=== PATIENT | male | born 1945 | race Caucasian/White ===

== ENCOUNTER 2019-02-09 08:23 | Day surgery (SDC) | payer MEDICARE, BC ==
[~2019-02-09 08:23] MED LIST: Midazolam 1 MG/ML 2 ML SDV ONE; Propofol 200 MG/20 ML SDV ONE; Sodium Chloride 0.9% 10 ML Syringe FLUSH PRN
[2019-02-09] MEDS: Lactated Ringers 1,000 ML IV SCH (09:11)
[2019-02-09] MEDS ORDERED: Midazolam 1 MG/ML 2 ML SDV ONE (09:45)
[2019-02-09] MEDS ORDERED: Propofol 200 MG/20 ML SDV ONE ×2 (09:45→10:24)
--- NOTE | 2019-02-09 10:16 | PCM.HPR ---
H & P Addendum review - H & P Addendum Review Date of Original H & P: 01/11/19 Date Reviewed: 02/09/19 Time Reviewed: 09:35 Patient was Examined: No Changes
--- NOTE | 2019-02-09 10:16 | PCM.OPNOTE ---
- General Post-Op/Procedure Note Date of Surgery/Procedure: 02/09/19 Operative Procedure(s): Colonoscopy with polypectomy Findings: desc colon polyp at 75 cm Pre Op Diagnosis: Screening Post-Op Diagnosis: Same Anesthesia Technique: MAC Primary Surgeon: Selwyn Duque Anesthesia Provider: Shirlene Ochoa EBSerena in mLs: 0 Complications: None Condition: Good
--- NOTE | 2019-02-10 08:38 | OR ---
Date of Procedure: 02/09/2019 PREOPERATIVE DIAGNOSIS: Colon screening. POSTOPERATIVE DIAGNOSIS: Descending colon polyp. PROCEDURE: Colonoscopy with polypectomy. ANESTHESIA: IV sedation. PROCEDURE IN DETAIL: The patient was brought to procedure room, where he was placed on his left side and IV sedation administered. Digital rectal exam was performed, which was normal. Colonoscope was inserted and advanced to the level of the cecum without difficulty. Cecal position was confirmed by identifying the appendiceal lumen and ileocecal valve. Prep was good and surfaces were well visualized. Upon withdrawing the scope, the ascending and transverse colon were normal. In the descending colon at 75 cm, was a 7 mm semipedunculated polyp removed with a cautery snare and retrieved in the polyp trap. The sigmoid colon and rectum were normal. Retroflexion was normal. Air was removed and the scope was withdrawn. The patient tolerated the procedure well then returned to recovery in stable condition. The patient will follow up with Wendy Fishman next week for review of pathology report. If the polyp is adenomatous, he should undergo a repeat colonoscopy again in 3 years. If the polyp is hyperplastic, he would not need another colon screening since he would be over 82 years old in 10 years. LUIS STEEL MD /[id number]
== END 2019-02-09 11:48 | disposition home or self-care (01) ==
LOC: LL.SDS 08:23
PROVIDERS: ATTEND Surgery
DX: Z12.11 Encounter for screening for malignant neoplasm of colon (principal); D12.4 Benign neoplasm of descending colon; I63.9 Cerebral infarction, unspecified; I10 Essential (primary) hypertension; E11.9 Type 2 diabetes mellitus without complications; E78.5 Hyperlipidemia, unspecified; F17.210 Nicotine dependence, cigarettes, uncomplicated; G47.33 Obstructive sleep apnea (adult) (pediatric); R79.89 Other specified abnormal findings of blood chemistry; M25.50 Pain in unspecified joint; M10.9 Gout, unspecified; F32.9 Major depressive disorder, single episode, unspecified; I67.1 Cerebral aneurysm, nonruptured; Z99.89 Dependence on other enabling machines and devices; Z79.84 Long term (current) use of oral hypoglycemic drugs; Z79.899 Other long term (current) drug therapy
CPT/HCPCS: 00812; 45385; 88305; J2250; J2704; J7120

== ENCOUNTER 2020-08-12 21:11 | Emergency (ER) | payer MEDICARE, BC ==
[2020-08-12 22:31] LABS: PTT,PARTIAL THROMBOPLSTIN TIME 23.2 SEC (24.5-32.8)
--- NOTE | 2020-08-12 22:49 | EDM.PDOC ---
ED HPI GENERAL MEDICAL PROBLEM - General Chief Complaint: Neurological Problem Stated Complaint: stroke code Time Seen by Provider: 08/12/20 21:23 Source of Information: Reports: Patient History Limitations: Reports: No Limitations - History of Present Illness INITIAL COMMENTS - FREE TEXT/NARRATIVE: Pt presents to ER via EMS as stroke code Was sitting in recliner and had acute onset left sided weakness at 2040 hrs Witnessed by EMS noted left side to be flaccid upon their arrival Transport to ER about 10 minutes and symptoms resolved completely during transport Completely neuro intact upon arrival in ER No SOB No fever No chest pain States did not take his BP meds today Is on Plavix for 2 previous TIA's with last over a year ago Onset: Today, Sudden Duration: Minutes: Location: Reports: Upper Extremity, Left, Lower Extremity, Left Context: Reports: Other (CVA) Treatments SUSTAINABLE DESIGN COORDINATOR: Reports: IV/IO - Related Data Allergies Allergy/AdvReac Type Severity Reaction Status Date / Time No Known Allergies Allergy Verified 08/12/20 21:58 Home Meds: Home Meds Folic Acid 1 mg PO DAILY 02/08/19 [History] Metoprolol Succinate [Toprol XL 100mg] 100 mg PO BEDTIME 02/08/19 [History] Potassium Chloride [Klor-Con 10] 2 tab PO DAILY 02/08/19 [History] Valsartan/Hydrochlorothiazide [Diovan Hct 160-12.5 mg Tab] 1 tab PO DAILY 02/08/19 [History] allopurinoL [Zyloprim] 300 mg PO DAILY 02/08/19 [History] amLODIPine [Norvasc] 2.5 mg PO BID 02/08/19 [History] Cholecalciferol (Vitamin D3) [Vitamin D3] 1 tab PO DAILY 02/09/19 [History] Colchicine 0.6 mg PO DAILY PRN 02/09/19 [History] Vitamin B Complex/Folic Acid [Hm Vitamin B-100 Complex Tab] 1 tab SL DAILY 02/09/19 [History] armodafiniL [Nuvigil] 100 mg PO DAILY 02/09/19 [History] Clopidogrel [Plavix] 75 mg PO DAILY 08/12/20 [History] Losartan [Cozaar] 100 mg PO DAILY 08/12/20 [History] Rosuvastatin [Crestor] 5 mg PO DAILY 08/12/20 [History] Sertraline [Zoloft] 25 mg PO DAILY 08/12/20 [History] Past Medical History HEENT History: Reports: Other (See Below) Other HEENT History: wears glasses Cardiovascular History: Reports: High Cholesterol, Hypertension, Other (See Below) Other Cardiovascular History: Dyslipidemia; hypertriglyceridemia; ischemic CVA in 1999 and 2008; cerebral aneurysm Respiratory History: Reports: Sleep Apnea Genitourinary History: Reports: Other (See Below) Other Genitourinary History: Azotemia with renal dysfunction; low erythropoietin Musculoskeletal History: Reports: Arthritis, Gout Neurological History: Reports: Cerebral Aneurysms, CVA Psychiatric History: Reports: Depression, Other (See Below) Other Psychiatric History: Anger issues; Nicotine dependency Endocrine/Metabolic History: Reports: Obesity/BMI 30+, Vitamin D Deficiency Hematologic History: Reports: Folic Acid Other Hematologic History: Low erythropoietin Dermatologic History: Reports: Other (See Below) Other Dermatologic History: Rosacea - Past Surgical History Dermatological Surgical History: Social & Family History - Caffeine Use Caffeine Use: Reports: Coffee ED ROS GENERAL - Review of Systems Review Of Systems: See Below Constitutional: Reports: No Symptoms HEENT: Reports: No Symptoms Respiratory: Reports: No Symptoms Cardiovascular: Reports: No Symptoms GI/Abdominal: Reports: No Symptoms Musculoskeletal: Reports: No Symptoms Skin: Reports: No Symptoms Neurological: Reports: Weakness, Other (Left side flaccid) ED EXAM, NEURO - Physical Exam Exam: See Below Exam Limited By: No Limitations General Appearance: Alert, WD/WN, No Apparent Distress Eye Exam: Bilateral Eye: EOMI, PERRL Nose: Normal Inspection Throat/Mouth: Normal Oropharynx Head Exam: Atraumatic Neck: Supple, Non-Tender Respiratory/Chest: Lungs Clear, Normal Breath Sounds Cardiovascular: Regular Rate, Rhythm GI/Abdominal: Non-Tender Neurological: Alert, Normal Mood/Affect, CN II-XII Intact, No Motor/Sensory Deficits, Oriented x 3 Extremities: Normal Inspection Psychiatric: Normal Affect, Normal Mood Course - Vital Signs Last Recorded V/S: Last Vital Signs Temp 98.4 F 08/12/20 21:53 Pulse 76 08/12/20 21:53 Resp 12 08/12/20 21:53 BP 143/70 H 08/12/20 21:53 Pulse Ox 98 08/12/20 21:53 - Orders/Labs/Meds Orders: Active Orders 24 hr Category Date Time Status EKG Documentation Completion [RC] ASDIRECTED Care 08/12/20 21:24 Active Head wo Cont [CT] Stat Exams 08/12/20 21:25 Ordered EKG 12 Lead [EK] Stat Ther 08/12/20 21:23 Ordered Labs: Laboratory Tests 08/12/20 08/12/20 08/12/20 Range/Units 21:30 21:30 21:30 WBC 8.4 (4.0-10.2) K/uL RBC 4.38 (4.33-5.41) M/uL Hgb 13.8 (13.1-16.8) g/dL Hct 41.3 (39.0-49.0) % MCV 94.3 (84.0-98.0) fL MCH 31.5 (28.2-33.3) pg MCHC 33.4 (31.7-36.0) g/dL RDW 13.1 (11.2-14.1) % Plt Count 354 H (150-350) K/uL Neut % (Auto) 56.7 (45.0-80.0) % Lymph % (Auto) 32.7 (10.0-50.0) % [place] % (Auto) 7.5 (2.0-14.0) % Eos % (Auto) 2.5 (0.0-5.0) % Baso % (Auto) 0.6 (0.0-2.0) % Neut # (Auto) 4.78 (1.40-7.00) K/uL Lymph # (Auto) 2.75 (0.50-3.50) K/uL [place] # (Auto) 0.63 (0.00-1.00) K/uL Eos # (Auto) 0.21 (0.00-0.50) K/uL Baso # (Auto) 0.05 (0.00-0.20) K/uL PT 9.7 (9.5-12.0) SEC INR 1.0 APTT 23.2 L (24.5-32.8) SEC Sodium 139 (136-145) mmol/L Potassium 3.5 (3.5-5.1) mmol/L Chloride 101 (98-107) mmol/L Carbon Dioxide 24.5 (21.0-32.0) mmol/L BUN 16 (7-18) mg/dL Creatinine 2.34 H (0.51-1.17) mg/dL Est Cr Clr Drug Dosing 30.86 mL/min Estimated GFR (MDRD) 27 mL/min Glucose 180 H (74-106) mg/dL Calcium 9.2 (8.5-10.1) mg/dL Total Bilirubin 0.3 (0.2-1.0) mg/dL AST 18 (15-37) U/L ALT 27 (12-78) U/L Alkaline Phosphatase 125 H (46-116) IU/L Troponin I 0.000 (0.000-0.056) ng/mL Total Protein 7.9 (6.4-8.2) g/dL Albumin 3.6 (3.4-5.0) g/dL - Re-Assessments/Exams Free Text/Narrative Re-Assessment/Exam: 08/12/20 22:[address] negative D/W Dr Drew On-call neurology Transfer to [facility] Transfer via ambulance Departure - Departure Time of Disposition: 22:50 Disposition: DC/Tfer to Acute Hospital 02 Clinical Impression: TIA (transient ischemic attack) - Discharge Information *PRESCRIPTION DRUG MONITORING PROGRAM REVIEWED*: Not Applicable *COPY OF PRESCRIPTION DRUG MONITORING REPORT IN PATIENT JUAN: Not Applicable Sepsis Event Note (ED) - Evaluation Sepsis Screening Result: No Definite Risk - Focused Exam Vital Signs: Vital Signs Temp Pulse Resp BP Pulse Ox 08/12/20 21:53 98.4 F 76 12 143/70 H 98 - My Orders Last 24 Hours: My Active Orders 08/12/20 21:23 EKG 12 Lead [EK] Stat 08/12/20 21:24 EKG Documentation Completion [RC] ASDIRECTED 08/12/20 21:25 Head wo Cont [CT] Stat - Assessment/Plan Last 24 Hours: My Active Orders 08/12/20 21:23 EKG 12 Lead [EK] Stat 08/12/20 21:24 EKG Documentation Completion [RC] ASDIRECTED 08/12/20 21:25 Head wo Cont [CT] Stat
== END 2020-08-12 23:00 ==
LOC: LL.ED 21:11
DX: G45.9 Transient cerebral ischemic attack, unspecified (principal); I10 Essential (primary) hypertension; E78.00 Pure hypercholesterolemia, unspecified; F32.9 Major depressive disorder, single episode, unspecified; E66.9 Obesity, unspecified; Z68.29 Body mass index [BMI] 29.0-29.9, adult; Z79.899 Other long term (current) drug therapy; Z79.02 Long term (current) use of antithrombotics/antiplatelets
CPT/HCPCS: 36415; 80053; 84484; 85025; 85610; 85730; 93005; 99285; 99285-25

== ENCOUNTER 2024-09-02 19:28 | Emergency (ER) | payer BC, MEDICARE, OTHER ==
[2024-09-02 19:53] LABS: BASOPHILS ABSOLUTE AUTO 0.08 K/uL (0.00-0.20); BASOPHILS PERCENT AUTO 1.2 % (0.0-2.0); EOSINOPHILS ABSOLUTE AUTO 0.13 K/uL (0.00-0.50); IMMATURE GRAN ABSOLUTE AUTO 0.01 10^3/uL (0.00-0.50); IMMATURE GRAN PERCENT AUTO 0.2 % (0.0-5.0); LYMPHOCYTES ABSOLUTE AUTO 0.91 K/uL (0.50-3.50); LYMPHOCYTES PERCENT AUTO 13.8 % (10.0-50.0); MEAN CORPUSCULAR HGB CONC 30.9 g/dL (31.7-36.0); MEAN CORPUSCULAR VOLUME 87.3 fL (84.0-98.0); MONOCYTES ABSOLUTE AUTO 0.56 K/uL (0.00-1.00); MONOCYTES PERCENT AUTO 8.5 % (2.0-14.0); NEUTROPHILS ABSOLUTE AUTO 4.89 K/uL (1.40-7.00); NEUTROPHILS PERCENT AUTO 74.3 % (45.0-80.0); PLATELET COUNT,PLT 292 K/uL (150-350); RED BLOOD CELL COUNT 2.67 M/uL (4.33-5.41); RED CELL DISTRIBUTION WIDTH 15.1 % (11.2-14.1); WHITE BLOOD CELL COUNT,WBC 6.6 K/uL (4.0-10.2)
[2024-09-02 19:55] LABS: HEMATOCRIT 23.3 % (39.0-49.0); HEMOGLOBIN 7.2 g/dL (13.1-16.8)
[2024-09-02 20:13] LABS: ALANINE AMINOTRANSFERASE,ALT 14 U/L (12-78); ALBUMIN 3.1 g/dL (3.4-5.0); ALKALINE PHOSPHATASE 87 IU/L (46-116); ANION GAP 9.9 meq/L (7-15); ASPARTATE AMNIOTRANSFERASE,AST 10 U/L (15-37); BILIRUBIN TOTAL 0.2 mg/dL (0.2-1.0); BLOOD UREA NITROGEN,BUN 26 mg/dL (7-18); CALCIUM 8.7 mg/dL (8.5-10.1); CARBON DIOXIDE,CO2 24.1 mmol/L (21.0-32.0); CHLORIDE,CL 107 mmol/L (98-107); GLUCOSE RANDOM 120 mg/dL (70-99); POTASSIUM,K 4.2 mmol/L (3.5-5.1); PROTEIN TOTAL,TP 7.2 g/dL (6.4-8.2); SODIUM,NA 141 mmol/L (136-145)
[2024-09-02 20:15] LABS: ESTIMATED GFR 20 mL/min (>=60)
[2024-09-02 20:18] LABS: CREATININE 3.09 mg/dL (0.51-1.17)
== END 2024-09-02 21:20 ==
LOC: LL.ED 19:28
DX: R55 Syncope and collapse (principal); I12.9 Hypertensive chronic kidney disease with stage 1 through stage 4 chronic kidney disease, or unspecified chronic kidney disease; N18.9 Chronic kidney disease, unspecified; Z79.899 Other long term (current) drug therapy; E78.00 Pure hypercholesterolemia, unspecified; E66.9 Obesity, unspecified; Z90.49 Acquired absence of other specified parts of digestive tract; D63.8 Anemia in other chronic diseases classified elsewhere
CPT/HCPCS: 36415; 80053; 83735; 85025; 93005; 99284